=== PATIENT | male | born 1965 | race Two or more races ===

== ENCOUNTER → 2017-01-19 | Outpatient (CLI) | payer OTHER ==
--- NOTE | 2017-01-19 14:31 | MR ---
EXAMINATION: MR of the head without contrast. TECHNIQUE: Multiplanar and multisequence imaging of the head without intravenous contrast. Diffusion weighted sequences were performed. HISTORY: Contusion. FINDINGS: The cerebral hemispheres and deep nuclei are without hemorrhage, mass, edema or atrophy. Small very subtle T2 FLAIR hyperintensities noted within the periventricular and subcortical white letter. No e vidence for restricted diffusion. No extraaxial collections or hemorrhage. The ventricular system is of normal size and configuration without hydrocephalus. Brainstem and cerebellum are without hemorrhage, mass, edema, gliosis or at rophy. Carotid basilar artery flow voids are intact. The otomastoid airspaces are clear. No internal dat tory canal or cerebellopontine angle masses. There is opacification of the right sphenoid sinus. The craniocervical junction is unremarkable. IMPRESSION: 1. Small periventricular and subcortical white matter FLAIR signal intensities, nonspecific, may rep resent early small vessel ischemic changes. 2. Opacification of the right sphenoid sinus.
== END ==
LOC: MW.MRI 09:43
PROVIDERS: ATTEND General Practice
DX: S00.93XA Contusion of unspecified part of head, initial encounter (principal); J34.89 Other specified disorders of nose and nasal sinuses
CPT/HCPCS: 70551; 70551-26

== ENCOUNTER 2019-07-02 09:15 | Emergency (ER) | payer BC, OTHER ==
--- NOTE | 2019-07-02 09:24 | EDM.PDOC ---
ED HPI GENERAL MEDICAL PROBLEM - General Chief Complaint: General Stated Complaint: DIZZINESS Time Seen by Provider: 07/02/19 09:23 Source of Information: Reports: Patient History Limitations: Reports: No Limitations - History of Present Illness INITIAL COMMENTS - FREE TEXT/NARRATIVE: History of present illness: []Patient started having dizziness 5 days ago that is like a spinning sensation with nausea and reading in his ears and difficulty with balance. Denies any blurry vision, fevers, chills or neck pain he states that this has given him a headache. Review of systems: As per history of present illness and below otherwise all systems reviewed and negative. Past medical history: As per history of present illness and as reviewed below otherwise noncontributory. Surgical history: As per history of present illness and as reviewed below otherwise noncontributory. Social history: No reported history of drug or alcohol abuse. Family history: As per history of present illness and as reviewed below otherwise noncontributory. Physical exam: General: Well developed, well nourished in NAD HEENT: Atraumatic, normocephalic, pupils reactive, negative for conjunctival pallor or scleral icterus, mucous membranes moist, throat clear, neck supple, nontender, trachea midline. Lungs: Clear to auscultation, breath sounds equal bilaterally, chest nontender. Heart: S1S2, regular, negative for clicks, rubs, or JVD. Abdomen: NABS, Soft, nondistended, nontender. Negative for masses or hepatosplenomegaly. Negative for costovertebral tenderness. Pelvis: Stable nontender. Genitourinary: Deferred. Rectal: Deferred. Extremities: Atraumatic, negative for cords or calf pain. Neurovascular unremarkable. Neuro: Awake, alert, oriented. Cranial nerves II through XII unremarkable. Cerebellum unremarkable. Motor and sensory unremarkable throughout. Exam nonfocal. Skin:warm and dry Diagnostics: CBC, chemistry, EKG Therapeutics: IV hydration, Zofran, Toradol and meclizine ED Course: Tums resolved Impression: Benign positional vertigo Prescriptions: Meclizine and Zofran Plan: Take meds as directed, follow up with your primary care physician, return to ER if symptoms worsen or change. Definitive disposition and diagnosis as appropriate pending reevaluation and review of above. headache Pain Score (Numeric/FACES): 8 - Related Data Allergies Allergy/AdvReac Type Severity Reaction Status Date / Time No Known Allergies Allergy Verified 07/02/19 09:22 Home Meds: Home Meds Ondansetron [Zofran ODT] 4 mg PO Q6H PRN #30 tab.dis 07/02/19 [Rx] Past Medical History - Past Health History Medical/Surgical History: Denies Medical/Surgical History Social & Family History - Family History Family Medical History: Noncontributory - Tobacco Use Smoking Status *Q: Never Smoker Second Hand Smoke Exposure: No - Caffeine Use Caffeine Use: Reports: None - Recreational Drug Use Recreational Drug Use: No ED ROS GENERAL - Review of Systems Review Of Systems: See Below ED EXAM, GENERAL - Physical Exam Exam: See Below Course - Vital Signs Last Recorded V/S: Last Vital Signs Temp 97.2 F 07/02/19 10:38 Pulse 64 07/02/19 10:38 Resp 18 07/02/19 10:38 BP 156/106 H 07/02/19 10:38 Pulse Ox 97 07/02/19 10:38 - Orders/Labs/Meds Orders: Active Orders 24 hr Category Date Time Status EKG 12 Lead [EKG Documentation Completion] [RC] STAT Care 07/02/19 09:55 Active UA W/MICROSCOPIC [URIN] Stat Lab 07/02/19 09:49 Ordered Sodium Chloride 0.9% [Saline Flush] Med 07/02/19 09:49 Active 10 ml FLUSH ASDIRECTED PRN Sodium Chloride 0.9% [Saline Flush] Med 07/02/19 09:49 Active 2.5 ml FLUSH ASDIRECTED PRN Saline Lock Insert [OM.PC] Stat Oth 07/02/19 09:49 Ordered Medication Orders Sodium Chloride (Saline Flush) 10 ml FLUSH ASDIRECTED PRN PRN Reason: Keep Vein Open Last Admin: 07/02/19 10:02 Dose: 10 ml Sodium Chloride (Saline Flush) 2.5 ml FLUSH ASDIRECTED PRN PRN Reason: Keep Vein Open Last Admin: 07/02/19 10:02 Dose: 2.5 ml Labs: Laboratory Tests 07/02/19 07/02/19 Range/Units 09:30 09:30 WBC 6.85 (4.0-11.0) K/uL RBC 5.00 (4.50-5.90) M/uL Hgb 15.1 (13.0-17.0) g/dL Hct 45.2 (38.0-50.0) % MCV 90.4 (80.0-98.0) fL MCH 30.2 (27.0-32.0) pg MCHC 33.4 (31.0-37.0) g/dL RDW Std Deviation 43.1 (28.0-62.0) fl RDW Coeff of Gina 13 (11.0-15.0) % Plt Count 158 (150-400) K/uL MPV 12.30 H (7.40-12.00) fL Neut % (Auto) 63.3 (48.0-80.0) % Lymph % (Auto) 26.9 (16.0-40.0) % Cowley % (Auto) 7.7 (0.0-15.0) % Eos % (Auto) 2.0 (0.0-7.0) % Baso % (Auto) 0.1 (0.0-1.5) % Neut # (Auto) 4.3 (1.4-5.7) K/uL Lymph # (Auto) 1.8 (0.6-2.4) K/uL Cowley # (Auto) 0.5 (0.0-0.8) K/uL Eos # (Auto) 0.1 (0.0-0.7) K/uL Baso # (Auto) 0.0 (0.0-0.1) K/uL Nucleated RBC % 0.0 /100WBC Nucleated RBCs # 0 K/uL Sodium 140 (136-148) mmol/L Potassium 4.0 (3.5-5.1) mmol/L Chloride 105 (98-107) mmol/L Carbon Dioxide 26.4 (21.0-32.0) mmol/L BUN 10 (7.0-18.0) mg/dL Creatinine 1.0 (0.8-1.3) mg/dL Est Cr Clr Drug Dosing 84.45 mL/min Estimated GFR (MDRD) > 60.0 ml/min Glucose 140 H (74-106) mg/dL Calcium 8.5 (8.5-10.1) mg/dL Total Bilirubin 1.1 H (0.2-1.0) mg/dL AST 28 (15-37) IU/L ALT 17 (14-63) IU/L Alkaline Phosphatase 85 (46-116) U/L Total Protein 7.4 (6.4-8.2) g/dL Albumin 3.8 (3.4-5.0) g/dL Globulin 3.6 (2.6-4.0) g/dL Albumin/Globulin Ratio 1.1 (0.9-1.6) Meds: Medications Generic Name Dose Route Start Last Admin Trade Name Freq PRN Reason Stop Dose Admin Sodium Chloride 10 ml 07/02/19 09:49 07/02/19 10:02 Saline Flush FLUSH 10 ml ASDIRECTED PRN Administration Keep Vein Open Sodium Chloride 2.5 ml 07/02/19 09:49 07/02/19 10:02 Saline Flush FLUSH 2.5 ml ASDIRECTED PRN Administration Keep Vein Open Discontinued Medications Generic Name Dose Route Start Last Admin Trade Name Freq PRN Reason Stop Dose Admin Sodium Chloride 1,000 mls @ 999 mls/hr 07/02/19 09:49 07/02/19 09:59 Normal Saline IV 07/02/19 10:49 999 mls/hr .Bolus ONE Administration Ketorolac Tromethamine 30 mg 07/02/19 09:53 07/02/19 10:00 Toradol IVPUSH 07/02/19 09:54 30 mg ONETIME ONE Administration Meclizine HCl 25 mg 07/02/19 09:53 07/02/19 09:59 Antivert PO 07/02/19 09:54 25 mg ONETIME ONE Administration Ondansetron HCl 4 mg 07/02/19 09:53 07/02/19 09:59 Zofran IVPUSH 07/02/19 09:54 4 mg ONETIME ONE Administration Departure - Departure Time of Disposition: 11:15 Disposition: Home, Self-Care 01 Condition: Good Clinical Impression: Benign positional vertigo Qualifiers: Laterality: unspecified laterality Qualified Code(s): H81.10 - Benign paroxysmal vertigo, unspecified ear - Discharge Information *PRESCRIPTION DRUG MONITORING PROGRAM REVIEWED*: No *COPY OF PRESCRIPTION DRUG MONITORING REPORT IN PATIENT DINORAH: No Forms: ED Department Discharge Additional Instructions: The following information is given to patients seen in the emergency department who are being discharged to home. This information is to outline your options for follow-up care. We provide all patients seen in our emergency department with a follow-up referral. The need for follow-up, as well as the timing and circumstances, are variable depending upon the specifics of your emergency department visit. If you don't have a primary care physician on staff, we will provide you with a referral. We always advise you to contact your personal physician following an emergency department visit to inform them of the circumstance of the visit and for follow-up with them and/or the need for any referrals to a consulting specialist. The emergency department will also refer you to a specialist when appropriate. This referral assures that you have the opportunity for follow-up care with a specialist. All of these measure are taken in an effort to provide you with optimal care, which includes your follow-up. Under all circumstances we always encourage you to contact your private physician who remains a resource for coordinating your care. When calling for follow-up care, please make the office aware that this follow-up is from your recent emergency room visit. If for any reason you are refused follow-up, please contact the [facility] Emergency Department at and asked to speak to the emergency department charge nurse. Take meds as directed, follow up with your primary care physician, return to ER if symptoms worsen or change. [facility] [address] [place] [id number] - My Orders Last 24 Hours: My Active Orders 07/02/19 09:49 UA W/MICROSCOPIC [URIN] Stat Sodium Chloride 0.9% [Saline Flush] 10 ml FLUSH ASDIRECTED PRN Sodium Chloride 0.9% [Saline Flush] 2.5 ml FLUSH ASDIRECTED PRN Saline Lock Insert [OM.PC] Stat 07/02/19 09:55 EKG 12 Lead [EKG Documentation Completion] [RC] STAT - Assessment/Plan Last 24 Hours: My Active Orders 07/02/19 09:49 UA W/MICROSCOPIC [URIN] Stat Sodium Chloride 0.9% [Saline Flush] 10 ml FLUSH ASDIRECTED PRN Sodium Chloride 0.9% [Saline Flush] 2.5 ml FLUSH ASDIRECTED PRN Saline Lock Insert [OM.PC] Stat 07/02/19 09:55 EKG 12 Lead [EKG Documentation Completion] [RC] STAT
[2019-07-02] MEDS ORDERED: Sodium Chloride 0.9% 1,000 ML IV ONE (09:49)
[2019-07-02] MEDS ORDERED: Sodium Chloride 0.9% 10 ML Syringe FLUSH PRN (09:49)
[2019-07-02] MEDS ORDERED: Sodium Chloride 0.9% 2.5 ML Syringe FLUSH PRN (09:49)
[2019-07-02] MEDS ORDERED: Ondansetron 4 MG/2 ML SDV IVPUSH ONE (09:53)
[2019-07-02] MEDS ORDERED: Ketorolac 30 MG/ML SDV IVPUSH ONE (09:53)
[2019-07-02] MEDS ORDERED: Meclizine 25 MG Tab PO ONE (09:53)
[2019-07-02 10:34] LABS: BLOOD UREA NITROGEN,BUN 10 mg/dL (7.0-18.0); CARBON DIOXIDE,CO2 26.4 mmol/L (21.0-32.0); CHLORIDE,CL 105 mmol/L (98-107); GLUCOSE RANDOM 140 mg/dL (74-106); SODIUM,NA 140 mmol/L (136-148)
== END 2019-07-02 11:30 | disposition home or self-care (01) ==
LOC: MW.ED 09:15
DX: H81.10 Benign paroxysmal vertigo, unspecified ear (principal)
CPT/HCPCS: 36415; 80053; 85025; 93005; 96361; 96374; 96375; 99284; A9270; J1885; J2405; J7040; 99283

== ENCOUNTER 2019-07-03 10:19 | Emergency (ER) | payer BC ==
[2019-07-03] MEDS ORDERED: Sodium Chloride 0.9% 1,000 ML IV ONE (10:30)
[2019-07-03] MEDS ORDERED: Sodium Chloride 0.9% 10 ML Syringe FLUSH PRN (10:30)
[2019-07-03] MEDS ORDERED: Sodium Chloride 0.9% 2.5 ML Syringe FLUSH PRN (10:30)
--- NOTE | 2019-07-03 10:30 | EDM.PDOC ---
ED HPI GENERAL MEDICAL PROBLEM - General Chief Complaint: Cardiovascular Problem Stated Complaint: DIZZY Time Seen by Provider: 07/03/19 10:30 Source of Information: Reports: Patient History Limitations: Reports: No Limitations - History of Present Illness INITIAL COMMENTS - FREE TEXT/NARRATIVE: HISTORY AND PHYSICAL: History of present illness: Patient is a 53-year-old male presents to the ED with complaint of dizziness x 6 days. He was seen yesterday for this, was given Meclizine and zofran. He states he is more dizzy today. He states he initially had a headache but this has since resolved. He states it feels like the room is spinning and it worse when he changes positions. He states he is unsteady on his feet and almost falls over due to the dizziness. He reports some blurred vision. He denies nausea, vomiting, head injury, fevers, chills. He denies significant past medical history. Review of systems: As per history of present illness and below otherwise all systems reviewed and negative. Past medical history: As per history of present illness and as reviewed below otherwise noncontributory. Surgical history: As per history of present illness and as reviewed below otherwise noncontributory. Social history: No reported history of drug or alcohol abuse. Family history: As per history of present illness and as reviewed below otherwise noncontributory. Physical exam: General: Patient sitting comfortably in no acute distress and nontoxic appearing HEENT: Atraumatic, normocephalic, pupils reactive, negative for conjunctival pallor or scleral icterus, mucous membranes moist, throat clear, neck supple, nontender, trachea midline. No meningeal signs. Horizontal nystagmus noted. Lungs: Clear to auscultation, breath sounds equal bilaterally, chest nontender. Heart: S1S2, regular, negative for clicks, rubs, or overt murmur. Abdomen: Soft, nondistended, nontender. Negative for masses or hepatosplenomegaly. Negative for costovertebral tenderness. No rigidity, rebound , guarding. Pelvis: Stable nontender. Genitourinary: Deferred. Rectal: Deferred. Extremities: Atraumatic, negative for cords or calf pain. Neurovascular unremarkable. Neuro: Awake, alert, oriented. Cranial nerves II through XII unremarkable. Cerebellum unremarkable. Motor and sensory unremarkable throughout. Exam nonfocal. Notes: Diagnostics: CBC, CMP, Troponin, EKG, Head CT Therapeutics: 1L NS IV Prescriptions: Impression: Vertigo Plan: Take medications as prescribed Follow up with primary care provider Return to ED as needed as discussed Definitive disposition and diagnosis as appropriate pending reevaluation and review of above. - Related Data Allergies Allergy/AdvReac Type Severity Reaction Status Date / Time No Known Allergies Allergy Verified 07/02/19 09:22 Home Meds: Home Meds Ondansetron [Zofran ODT] 4 mg PO Q6H PRN #30 tab.dis 07/02/19 [Rx] Past Medical History - Past Health History Medical/Surgical History: Denies Medical/Surgical History - Infectious Disease History Infectious Disease History: Reports: None Social & Family History - Family History Family Medical History: Noncontributory - Tobacco Use Smoking Status *Q: Never Smoker Second Hand Smoke Exposure: No - Caffeine Use Caffeine Use: Reports: None - Recreational Drug Use Recreational Drug Use: No ED ROS GENERAL - Review of Systems Review Of Systems: ROS reveals no pertinent complaints other than HPI. ED EXAM, GENERAL - Physical Exam Exam: See Below (see dictation) Course - Vital Signs Last Recorded V/S: Last Vital Signs Temp 96.9 F 07/03/19 11:59 Pulse 60 07/03/19 11:59 Resp 16 07/03/19 11:59 BP 148/90 H 07/03/19 11:59 Pulse Ox 98 07/03/19 11:59 - Orders/Labs/Meds Orders: Active Orders 24 hr Category Date Time Status EKG Documentation Completion [RC] STAT Care 07/03/19 10:29 Active Sodium Chloride 0.9% [Saline Flush] Med 07/03/19 10:30 Active 10 ml FLUSH ASDIRECTED PRN Sodium Chloride 0.9% [Saline Flush] Med 07/03/19 10:30 Active 2.5 ml FLUSH ASDIRECTED PRN Saline Lock Insert [OM.PC] Stat Oth 07/03/19 10:29 Ordered Medication Orders Sodium Chloride (Saline Flush) 10 ml FLUSH ASDIRECTED PRN PRN Reason: Keep Vein Open Sodium Chloride (Saline Flush) 2.5 ml FLUSH ASDIRECTED PRN PRN Reason: Keep Vein Open Labs: Laboratory Tests 07/03/19 07/03/19 Range/Units 10:41 10:41 WBC 6.97 (4.0-11.0) K/uL RBC 4.96 (4.50-5.90) M/uL Hgb 15.2 (13.0-17.0) g/dL Hct 45.7 (38.0-50.0) % MCV 92.1 (80.0-98.0) fL MCH 30.6 (27.0-32.0) pg MCHC 33.3 (31.0-37.0) g/dL RDW Std Deviation 44.3 (28.0-62.0) fl RDW Coeff of Gina 13 (11.0-15.0) % Plt Count 168 (150-400) K/uL MPV 11.30 (7.40-12.00) fL Neut % (Auto) 64.2 (48.0-80.0) % Lymph % (Auto) 26.3 (16.0-40.0) % Pine % (Auto) 7.5 (0.0-15.0) % Eos % (Auto) 1.9 (0.0-7.0) % Baso % (Auto) 0.1 (0.0-1.5) % Neut # (Auto) 4.5 (1.4-5.7) K/uL Lymph # (Auto) 1.8 (0.6-2.4) K/uL Pine # (Auto) 0.5 (0.0-0.8) K/uL Eos # (Auto) 0.1 (0.0-0.7) K/uL Baso # (Auto) 0.0 (0.0-0.1) K/uL Nucleated RBC % 0.0 /100WBC Nucleated RBCs # 0 K/uL Sodium 142 (136-148) mmol/L Potassium 4.1 (3.5-5.1) mmol/L Chloride 105 (98-107) mmol/L Carbon Dioxide 24.7 (21.0-32.0) mmol/L BUN 13 (7.0-18.0) mg/dL Creatinine 1.0 (0.8-1.3) mg/dL Est Cr Clr Drug Dosing 76.21 mL/min Estimated GFR (MDRD) > 60.0 ml/min Glucose 116 H (74-106) mg/dL Calcium 8.3 L (8.5-10.1) mg/dL Total Bilirubin 0.6 (0.2-1.0) mg/dL AST 22 (15-37) IU/L ALT 21 (14-63) IU/L Alkaline Phosphatase 84 (46-116) U/L Troponin I < 0.050 (0.000-0.056) ng/mL Total Protein 6.7 (6.4-8.2) g/dL Albumin 3.8 (3.4-5.0) g/dL Globulin 2.9 (2.6-4.0) g/dL Albumin/Globulin Ratio 1.3 (0.9-1.6) Meds: Medications Generic Name Dose Route Start Last Admin Trade Name Freq PRN Reason Stop Dose Admin Sodium Chloride 10 ml 07/03/19 10:30 Saline Flush FLUSH ASDIRECTED PRN Keep Vein Open Sodium Chloride 2.5 ml 07/03/19 10:30 Saline Flush FLUSH ASDIRECTED PRN Keep Vein Open Discontinued Medications Generic Name Dose Route Start Last Admin Trade Name Freq PRN Reason Stop Dose Admin Sodium Chloride 1,000 mls @ 999 mls/hr 07/03/19 10:30 07/03/19 10:44 Normal Saline IV 07/03/19 11:30 999 mls/hr STAT ONE Administration Departure - Departure Time of Disposition: 12:13 Disposition: Home, Self-Care 01 Condition: Good Clinical Impression: Vertigo Referrals: PCP,None [Primary Care Provider] - Forms: ED Department Discharge Additional Instructions: The following information is given to patients seen in the emergency department who are being discharged to home. This information is to outline your options for follow-up care. We provide all patients seen in our emergency department with a follow-up referral. The need for follow-up, as well as the timing and circumstances, are variable depending upon the specifics of your emergency department visit. If you don't have a primary care physician on staff, we will provide you with a referral. We always advise you to contact your personal physician following an emergency department visit to inform them of the circumstance of the visit and for follow-up with them and/or the need for any referrals to a consulting specialist. The emergency department will also refer you to a specialist when appropriate. This referral assures that you have the opportunity for follow-up care with a specialist. All of these measure are taken in an effort to provide you with optimal care, which includes your follow-up. Under all circumstances we always encourage you to contact your private physician who remains a resource for coordinating your care. When calling for follow-up care, please make the office aware that this follow-up is from your recent emergency room visit. If for any reason you are refused follow-up, please contact the [facility] Emergency Department at and asked to speak to the emergency department charge nurse. [facility] [address] [address] [address] [facility] - Physical Therapy Professional Building [address] [place] [address], [address] [place] [address] Take medications as prescribed Follow up with primary care provider Return to ED as needed as discussed - My Orders Last 24 Hours: My Active Orders 07/03/19 10:29 EKG Documentation Completion [RC] STAT Saline Lock Insert [OM.PC] Stat 07/03/19 10:30 Sodium Chloride 0.9% [Saline Flush] 10 ml FLUSH ASDIRECTED PRN Sodium Chloride 0.9% [Saline Flush] 2.5 ml FLUSH ASDIRECTED PRN - Assessment/Plan Last 24 Hours: My Active Orders 07/03/19 10:29 EKG Documentation Completion [RC] STAT Saline Lock Insert [OM.PC] Stat 07/03/19 10:30 Sodium Chloride 0.9% [Saline Flush] 10 ml FLUSH ASDIRECTED PRN Sodium Chloride 0.9% [Saline Flush] 2.5 ml FLUSH ASDIRECTED PRN
[2019-07-03 11:36] LABS: BLOOD UREA NITROGEN,BUN 13 mg/dL (7.0-18.0); CARBON DIOXIDE,CO2 24.7 mmol/L (21.0-32.0); CHLORIDE,CL 105 mmol/L (98-107); GLUCOSE RANDOM 116 mg/dL (74-106); POTASSIUM,K 4.1 mmol/L (3.5-5.1); SODIUM,NA 142 mmol/L (136-148)
--- NOTE | 2019-07-03 11:39 | CT ---
INDICATION : Dizziness. TECHNIQUE : Noncontrast CT scan of brain. FINDINGS: No acute intra or extra-axial hemorrhage. The ventricles and sulci are normal size, shape and configuration. No visualized intracranial mass or additional abnormal attenuation. Bony calvarium is normal. IMPRESSION : No significant intracranial radiographic abnormality. Please note that all CT scans at this facility use dose modulation, iterative reconstruction, and/or weight-based dosing when appropriate to reduce radiation dose to as low as reasonably achievable. Dictated by Edmar Chung MD @ Jul 03 2019 11:29AM Signed by Dr. Edmar Chung @ Jul 03 2019 11:38AM
== END 2019-07-03 12:24 | disposition home or self-care (01) ==
LOC: MW.ED 10:19
DX: R42 Dizziness and giddiness (principal)
CPT/HCPCS: 36415; 70450; 80053; 84484; 85025; 93005; 96360; 99284; J7040

== ENCOUNTER 2019-07-26 12:36 | Emergency (ER) | payer BC ==
[2019-07-26] MEDS ORDERED: Sodium Chloride 0.9% 1,000 ML IV ONE (12:59)
[2019-07-26] MEDS ORDERED: Ondansetron 4 MG/2 ML SDV IVPUSH ONE (12:59)
[2019-07-26] MEDS ORDERED: Metoclopramide 10 MG/2 ML SDV IV ONE (13:00)
[2019-07-26] MEDS ORDERED: diphenhydrAMINE 50 MG/ML SDV IVPUSH ONE (13:00)
--- NOTE | 2019-07-26 13:04 | EDM.PDOC ---
ED HPI GENERAL MEDICAL PROBLEM - General Chief Complaint: Headache Stated Complaint: HEADACHE Time Seen by Provider: 07/26/19 12:38 Source of Information: Reports: Patient History Limitations: Reports: No Limitations - History of Present Illness INITIAL COMMENTS - FREE TEXT/NARRATIVE: HISTORY AND PHYSICAL: History of present illness: Patient is a 53-year-old male who presents to the ED today for concern of headache 5 days. Patient states he has taken Advil and Tylenol without relief of symptoms. Patient states he was seen here in the ED at the beginning of the month for dizziness and headache but his headache today is the worse than it had been prior. Patient states he is not feeling dizzy with the headache today. Patient denies any other symptoms or concerns. Patient denies fever, chills, chest pain, shortness of breath, or cough. Denies headache, neck stiff ness, change in vision, syncope, or near syncope. Denies nausea, vomiting, abdominal pain, diarrhea, constipation, or dysuria. Has not noted any blood in urine or stool. Patient has been eating and drinking appropriately. Review of systems: As per history of present illness and below otherwise all systems reviewed and negative. Past medical history: As per history of present illness and as reviewed below otherwise noncontributory. Surgical history: As per history of present illness and as reviewed below otherwise noncontributory. Social history: See social history for further information Family history: As per history of present illness and as reviewed below otherwise noncontributory. Physical exam: General: Patient is alert, oriented, and in no acute distress. Patient sitting comfortably on exam table. HEENT: Atraumatic, normocephalic, pupils equal and reactive bilaterally, negative for conjunctival pallor or scleral icterus, mucous membranes moist, TMs normal bilaterally, throat clear, neck supple, nontender, trachea midline. No drooling or trismus noted. No meningeal signs. No hot potato voice noted. Lungs: Clear to auscultation, breath sounds equal bilaterally, chest nontender. Heart: S1S2, regular rate and rhythm without overt murmur Abdomen: Soft, nondistended, nontender. Negative for masses or hepatosplenomegaly. Negative for costovertebral tenderness. Pelvis: Stable nontender. Genitourinary: Deferred. Rectal: Deferred. Skin: Intact, warm, dry. No lesions or rashes noted. Extremities: Atraumatic, negative for cords or calf pain. Neurovascular unremarkable. Neuro: Awake, alert, oriented. Cranial nerves II through XII unremarkable. Cerebellum unremarkable. Motor and sensory unremarkable throughout. Exam nonfocal. Notes: Dr. Alba verbally involved in patient care. Patient is not interested in any further investigation of symptoms and requesting to leave ED. Voices understanding and is agreeable to plan of care. Denies any further questions or concerns at this time. Diagnostics: CBC, CMP, UA, EKG, and CT with and without contrast Therapeutics: Toradol (patient declines all other therapeutics) Prescription: None Impression: Headache Plan: 1. Encourage small but frequent sips of fluid to prevent dehydration. 2. You can alternate ibuprofen and Tylenol as directed for pain and discomfort. 3. Follow up with your primary care provider and the neurologist as discussed. Return to the ED as needed and as discussed. Definitive disposition and diagnosis as appropriate pending reevaluation and review of above. headache Pain Score (Numeric/FACES): 7 - Related Data Allergies Allergy/AdvReac Type Severity Reaction Status Date / Time No Known Allergies Allergy Verified 07/26/19 12:49 Home Meds: Home Meds . [No Known Home Meds] 07/26/19 [History] Past Medical History - Past Health History Medical/Surgical History: Denies Medical/Surgical History - Infectious Disease History Infectious Disease History: Reports: None Social & Family History - Family History Family Medical History: Noncontributory - Tobacco Use Smoking Status *Q: Never Smoker - Caffeine Use Caffeine Use: Reports: None - Recreational Drug Use Recreational Drug Use: No ED ROS GENERAL - Review of Systems Review Of Systems: ROS reveals no pertinent complaints other than HPI. ED EXAM, GENERAL - Physical Exam Exam: See Below (See dictation) Course - Vital Signs Last Recorded V/S: Last Vital Signs Temp 96.1 F 07/26/19 12:47 Pulse 65 07/26/19 12:47 Resp 18 07/26/19 12:47 BP 157/95 H 07/26/19 12:47 Pulse Ox 96 07/26/19 12:47 - Orders/Labs/Meds Orders: Active Orders 24 hr Category Date Time Status EKG Documentation Completion [RC] STAT Care 07/26/19 13:07 Active UA RFX SONNY AND CULT IF INDIC [URIN] Stat Lab 07/26/19 13:07 Ordered Ketorolac [Toradol] Med 07/26/19 14:51 Once 30 mg IVPUSH ONETIME ONE Medication Orders Ketorolac Tromethamine (Toradol) 30 mg IVPUSH ONETIME ONE Stop: 07/26/19 14:52 Labs: Laboratory Tests 07/26/19 07/26/19 Range/Units 13:10 13:10 WBC 6.44 (4.0-11.0) K/uL RBC 4.93 (4.50-5.90) M/uL Hgb 14.8 (13.0-17.0) g/dL Hct 44.1 (38.0-50.0) % MCV 89.5 (80.0-98.0) fL MCH 30.0 (27.0-32.0) pg MCHC 33.6 (31.0-37.0) g/dL RDW Std Deviation 41.3 (28.0-62.0) fl RDW Coeff of Gina 13 (11.0-15.0) % Plt Count 180 (150-400) K/uL MPV 11.00 (7.40-12.00) fL Neut % (Auto) 59.2 (48.0-80.0) % Lymph % (Auto) 32.8 (16.0-40.0) % Winn % (Auto) 6.2 (0.0-15.0) % Eos % (Auto) 1.6 (0.0-7.0) % Baso % (Auto) 0.2 (0.0-1.5) % Neut # (Auto) 3.8 (1.4-5.7) K/uL Lymph # (Auto) 2.1 (0.6-2.4) K/uL Winn # (Auto) 0.4 (0.0-0.8) K/uL Eos # (Auto) 0.1 (0.0-0.7) K/uL Baso # (Auto) 0.0 (0.0-0.1) K/uL Nucleated RBC % 0.0 /100WBC Nucleated RBCs # 0 K/uL Sodium 141 (136-148) mmol/L Potassium 3.9 (3.5-5.1) mmol/L Chloride 106 (98-107) mmol/L Carbon Dioxide 25.4 (21.0-32.0) mmol/L BUN 12 (7.0-18.0) mg/dL Creatinine 0.9 (0.8-1.3) mg/dL Est Cr Clr Drug Dosing 93.83 mL/min Estimated GFR (MDRD) > 60.0 ml/min Glucose 100 (74-106) mg/dL Calcium 8.3 L (8.5-10.1) mg/dL Total Bilirubin 0.6 (0.2-1.0) mg/dL AST 21 (15-37) IU/L ALT 18 (14-63) IU/L Alkaline Phosphatase 78 (46-116) U/L Total Protein 7.0 (6.4-8.2) g/dL Albumin 3.8 (3.4-5.0) g/dL Globulin 3.2 (2.6-4.0) g/dL Albumin/Globulin Ratio 1.2 (0.9-1.6) Meds: Medications Generic Name Dose Route Start Last Admin Trade Name Freq PRN Reason Stop Dose Admin Ketorolac Tromethamine 30 mg 07/26/19 14:51 Toradol IVPUSH 07/26/19 14:52 ONETIME ONE Discontinued Medications Generic Name Dose Route Start Last Admin Trade Name Freq PRN Reason Stop Dose Admin Diphenhydramine HCl 50 mg 07/26/19 13:00 07/26/19 13:09 Benadryl IVPUSH 07/26/19 13:01 Not Given ONETIME ONE Sodium Chloride 1,000 mls @ 999 mls/hr 07/26/19 12:59 07/26/19 13:10 Normal Saline IV 07/26/19 13:59 Not Given STAT ONE Iopamidol 100 ml 07/26/19 14:14 07/26/19 14:14 Isovue Multipack-370 (76%) IVPUSH 07/26/19 14:15 100 ml ONETIME ONE Administration Ketorolac Tromethamine 30 mg 07/26/19 14:50 Toradol IVPUSH 07/26/19 14:51 ONETIME ONE Metoclopramide HCl 10 mg 07/26/19 13:00 07/26/19 13:10 Reglan IV 07/26/19 13:01 Not Given ONETIME ONE Ondansetron HCl 4 mg 07/26/19 12:59 07/26/19 13:10 Zofran IVPUSH 07/26/19 13:00 Not Given ONETIME ONE Departure - Departure Time of Disposition: 14:53 Disposition: Home, Self-Care 01 Clinical Impression: Headache Qualifiers: Headache type: unspecified Headache chronicity pattern: acute headache Intractability: not intractable Qualified Code(s): R51 - Headache - Discharge Information Referrals: PCP,Not In Area [Primary Care Provider] - Forms: ED Department Discharge Additional Instructions: The following information is given to patients seen in the emergency department who are being discharged to home. This information is to outline your options for follow-up care. We provide all patients seen in our emergency department with a follow-up referral. The need for follow-up, as well as the timing and circumstances, are variable depending upon the specifics of your emergency department visit. If you don't have a primary care physician on staff, we will provide you with a referral. We always advise you to contact your personal physician following an emergency department visit to inform them of the circumstance of the visit and for follow-up with them and/or the need for any referrals to a consulting specialist. The emergency department will also refer you to a specialist when appropriate. This referral assures that you have the opportunity for follow-up care with a specialist. All of these measure are taken in an effort to provide you with optimal care, which includes your follow-up. Under all circumstances we always encourage you to contact your private physician who remains a resource for coordinating your care. When calling for follow-up care, please make the office aware that this follow-up is from your recent emergency room visit. If for any reason you are refused follow-up, please contact the [facility] Emergency Department at and asked to speak to the emergency department charge nurse. [facility] Primary [facility] [address] [place] [address] [facility] [address] [place] [address] [facility] - Neurology Professional Building [address] [place] [address], [address] [place] [address] 1. Encourage small but frequent sips of fluid to prevent dehydration. 2. You can alternate ibuprofen and Tylenol as directed for pain and discomfort. 3. Follow up with your primary care provider and the neurologist as discussed. Return to the ED as needed and as discussed. - My Orders Last 24 Hours: My Active Orders 07/26/19 13:07 EKG Documentation Completion [RC] STAT UA RFX SONNY AND CULT IF INDIC [URIN] Stat 07/26/19 14:51 Ketorolac [Toradol] 30 mg IVPUSH ONETIME ONE - Assessment/Plan Last 24 Hours: My Active Orders 07/26/19 13:07 EKG Documentation Completion [RC] STAT UA RFX SONNY AND CULT IF INDIC [URIN] Stat 07/26/19 14:51 Ketorolac [Toradol] 30 mg IVPUSH ONETIME ONE
[2019-07-26 13:43] LABS: BLOOD UREA NITROGEN,BUN 12 mg/dL (7.0-18.0); CARBON DIOXIDE,CO2 25.4 mmol/L (21.0-32.0); CHLORIDE,CL 106 mmol/L (98-107); GLUCOSE RANDOM 100 mg/dL (74-106); POTASSIUM,K 3.9 mmol/L (3.5-5.1); SODIUM,NA 141 mmol/L (136-148)
[2019-07-26] MEDS ORDERED: Iopamidol 755 MG/ML 500 ML Multipack Bottle IVPUSH ONE (14:14)
--- NOTE | 2019-07-26 14:44 | CT ---
DATE: 07/26/2019 CLINICAL HISTORY: Patient with headache. TECHNIQUE: Standard helical CT image acquisition through the intracranial circulation following intravenous administration of contrast material with bolus tracking. Multiplanar reconstructed images were performed and interpreted. COMPARISON: CT same day FINDINGS: There is an intraluminal flap with associated dilatation to 6mm of the post-PICA segment of the intracranial right vertebral artery, consistent with an intradural dissection and associated pseudoaneurysm. The right internal carotid artery is normal. The right middle cerebral artery and its branches are normal. The right anterior cerebral artery and its branches are normal. The left internal carotid artery is normal. The left middle cerebral artery and its branches are normal. The left anterior cerebral artery and its branches are normal. The anterior communicating artery is well visualized and appears normal. The left vertebral artery and PICA are normal. The right vertebral artery is dominant. The basilar artery is patent and appears normal. The right posterior cerebral artery is normal. The left posterior cerebral artery is normal. The visualized venous structures are patent. 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 Further evaluation with a catheter angiogram for treatment planning is recommended. Findings were discussed with Dr. Alba at 6 PM. Bonnie Moncada MD Neurointerventional Radiologist [facility] Office: Pager: Please note that all CT scans at this facility use dose modulation, iterative reconstruction, and/or weight-based dosing when appropriate to reduce radiation dose to as low as reasonably achievable. Dictated by Bonnie Moncada MD @ Jul 26 2019 5:48PM Signed by Dr. Bonnie Moncada @ Jul 26 2019 6:03PM
[2019-07-26] MEDS ORDERED: Ketorolac 30 MG/ML SDV IVPUSH ONE ×2 (14:50→14:51)
== END 2019-07-26 15:15 | disposition home or self-care (01) ==
LOC: MW.ED 12:36
DX: R51 Headache (principal)
CPT/HCPCS: 70496; 80053; 85025; 93005; 96374; 99284; J1885; Q9967; 99283

== ENCOUNTER 2021-10-10 15:40 | Emergency (ER) | payer SELFPAY ==
[2021-10-10] MEDS ORDERED: Ketorolac 30 MG/ML SDV IVPUSH ONE (16:32)
[2021-10-10] MEDS ORDERED: diphenhydrAMINE 50 MG/ML SDV IVPUSH ONE (16:32)
[2021-10-10] MEDS ORDERED: Sodium Chloride 0.9% 10 ML Syringe FLUSH PRN (16:32)
[2021-10-10] MEDS ORDERED: Metoclopramide 10 MG/2 ML SDV IVPUSH ONE (16:32)
[2021-10-10] MEDS ORDERED: Sodium Chloride 0.9% 2.5 ML Syringe FLUSH PRN (16:32)
--- NOTE | 2021-10-10 16:34 | EDM.PDOC ---
ED HPI GENERAL MEDICAL PROBLEM - General Chief Complaint: Headache Stated Complaint: HEADACHE FOR 5 DAYS Time Seen by Provider: 10/10/21 16:10 - History of Present Illness INITIAL COMMENTS - FREE TEXT/NARRATIVE: History of present illness: [] Patient is a severe diffuse headache with insidious onset 5 days ago associated with nausea and vomiting. Patient has a history of migraines since he was a child. One time in his past medical history that I reviewed he had a work-up that showed a CT angiogram after a headache that showed a possible dissection of his vertebral artery. Subsequently he saw specialist and they told him there was nothing to worry about there. Patient has usually gotten treatment symptomatically for his migraines and improved and been able to return to work. Patient has no neurologic signs of stroke. Review of systems: As per history of present illness and below otherwise all systems reviewed and negative. Past medical history: As per history of present illness and as reviewed below otherwise noncontributory. Surgical history: As per history of present illness and as reviewed below otherwise noncontributory. Social history: No reported history of drug or alcohol abuse. Family history: As per history of present illness and as reviewed below otherwise noncontributory. Physical exam: Constitutional - well developed, well-nourished and in no acute distress HEENT - normocephalic, no evidence of trauma - external nose and mouth normal - no mass in neck and no JVD - mucosae moist EYES - full EOM, PERRL, no icterus - no evidence of inflammation, injection, or drainage Respiratory - no respiratory distress, equal bilateral expansion Musculoskeletal no gross deformity of long bones or joints - no tenderness, swelling or edema Neurologic -my brief neurologic exam is normal. Alert and oriented times four - CN II-XII grossly intact - motor sensory and coordination symmetrically normal Psychiatric - appropriate mood and affect with normal thought content Hematologic - No petechiae or purpura - mucosa appropriate color and sclera not pale - normal nail bed color and refill Integument - no rash or evidence of trauma - normal turgor Diagnostics: [] Therapeutics: [] Impression: [] Plan: [] Definitive disposition and diagnosis as appropriate pending reevaluation and review of above. Headache Pain Score (Numeric/FACES): 7 - Related Data Allergies Allergy/AdvReac Type Severity Reaction Status Date / Time No Known Allergies Allergy Verified 10/10/21 16:16 Home Meds: Home Meds . [No Known Home Meds] 07/26/19 [History] Past Medical History - Past Health History Medical/Surgical History: Denies Medical/Surgical History - Infectious Disease History Infectious Disease History: Reports: None Social & Family History - Family History Family Medical History: No Pertinent Family History - Tobacco Use Second Hand Smoke Exposure: No - Caffeine Use Caffeine Use: Reports: None - Recreational Drug Use Recreational Drug Use: No ED ROS GENERAL - Review of Systems Review Of Systems: Comprehensive ROS is negative, except as noted in HPI. ED EXAM, GENERAL - Physical Exam Exam: See Below Free Text/Narrative:: My physical exam is in the HPI Course - Vital Signs Last Recorded V/S: Last Vital Signs Temp 36.2 C 10/10/21 16:12 Pulse 65 10/10/21 16:12 Resp 20 10/10/21 16:12 BP 146/80 H 10/10/21 16:12 Pulse Ox 96 10/10/21 16:12 - Orders/Labs/Meds Orders: Active Orders 24 hr Category Date Time Status Sodium Chloride 0.9% [Saline Flush] Med 10/10/21 16:32 Active 10 ml FLUSH ASDIRECTED PRN Sodium Chloride 0.9% [Saline Flush] Med 10/10/21 16:32 Active 2.5 ml FLUSH ASDIRECTED PRN Saline Lock Insert [OM.PC] Stat Oth 10/10/21 16:32 Ordered Medication Orders Sodium Chloride (Sodium Chloride 0.9% 10 Ml Syringe) 10 ml FLUSH ASDIRECTED PRN PRN Reason: Keep Vein Open Last Admin: 10/10/21 17:03 Dose: 10 ml Documented by: TORIBIO Sodium Chloride (Sodium Chloride 0.9% 2.5 Ml Syringe) 2.5 ml FLUSH ASDIRECTED PRN PRN Reason: Keep Vein Open Last Admin: 10/10/21 17:03 Dose: 2.5 ml Documented by: TORIBIO Meds: Medications Generic Name Dose Route Start Last Admin Trade Name Freq PRN Reason Stop Dose Admin Sodium Chloride 10 ml 10/10/21 16:32 10/10/21 17:03 Sodium Chloride 0.9% 10 Ml Syringe FLUSH 10 ml ASDIRECTED PRN Administration Keep Vein Open Sodium Chloride 2.5 ml 10/10/21 16:32 10/10/21 17:03 Sodium Chloride 0.9% 2.5 Ml Syringe FLUSH 2.5 ml ASDIRECTED PRN Administration Keep Vein Open Discontinued Medications Generic Name Dose Route Start Last Admin Trade Name Elias PRN Reason Stop Dose Admin Diphenhydramine HCl 50 mg 10/10/21 16:32 10/10/21 17:04 Diphenhydramine 50 Mg/Ml Sdv IVPUSH 10/10/21 16:33 50 mg ONETIME ONE Administration Ketorolac Tromethamine 15 mg 10/10/21 16:32 10/10/21 17:04 Ketorolac 30 Mg/Ml Sdv IVPUSH 10/10/21 16:33 15 mg ONETIME ONE Administration Metoclopramide HCl 10 mg 10/10/21 16:32 10/10/21 17:03 Metoclopramide 10 Mg/2 Ml Sdv IVPUSH 10/10/21 16:33 10 mg ONETIME ONE Administration - Re-Assessments/Exams Free Text/Narrative Re-Assessment/Exam: 10/10/21 17:43 Patient is markedly improved. Plan to discharge with a diagnosis of migraine and let him follow-up with neurology. Departure - Departure Time of Disposition: 17:43 Disposition: Home, Self-Care 01 Condition: Good Clinical Impression: Migraine - Discharge Information Instructions: Migraine Headache, [id number] Forms: ED Department Discharge Additional Instructions: Return if worse- My neurology [facility] - Neurology Professional Building [address] [place] [address], [address] [place] [address] - [facility] - Primary Care [address] [place] [address] [id number] [address] [address] - The following information is given to patients seen in the emergency department who are being discharged to home. This information is to outline your options for follow-up care. We provide all patients seen in our emergency department with a follow-up referral. The need for follow-up, as well as the timing and circumstances, are variable depending upon the specifics of your emergency department visit. If you don't have a primary care physician on staff, we will provide you with a referral. We always advise you to contact your personal physician following an emergency department visit to inform them of the circumstance of the visit and for follow-up with them and/or the need for any referrals to a consulting specialist. The emergency department will also refer you to a specialist when appropriate. This referral assures that you have the opportunity for follow-up care with a specialist. All of these measure are taken in an effort to provide you with optimal care, which includes your follow-up. Under all circumstances we always encourage you to contact your private physician who remains a resource for coordinating your care. When calling for follow-up care, please make the office aware that this follow-up is from your recent emergency room visit. If for any reason you are refused follow-up, please contact the [facility] Emergency Department at and asked to speak to the emergency department charge nurse. Sepsis Event Note (ED) - Evaluation Sepsis Screening Result: No Definite Risk - Focused Exam Vital Signs: Vital Signs Temp Pulse Resp BP Pulse Ox 10/10/21 16:12 36.2 C 65 20 146/80 H 96 - My Orders Last 24 Hours: My Active Orders 10/10/21 16:32 Sodium Chloride 0.9% [Saline Flush] 10 ml FLUSH ASDIRECTED PRN Sodium Chloride 0.9% [Saline Flush] 2.5 ml FLUSH ASDIRECTED PRN Saline Lock Insert [OM.PC] Stat - Assessment/Plan Last 24 Hours: My Active Orders 10/10/21 16:32 Sodium Chloride 0.9% [Saline Flush] 10 ml FLUSH ASDIRECTED PRN Sodium Chloride 0.9% [Saline Flush] 2.5 ml FLUSH ASDIRECTED PRN Saline Lock Insert [OM.PC] Stat
== END 2021-10-10 17:48 | disposition home or self-care (01) ==
LOC: MW.ED 15:40
DX: G43.909 Migraine, unspecified, not intractable, without status migrainosus (principal)
CPT/HCPCS: 96374; 96375; 99283; J1200; J1885; J2765

== ENCOUNTER 2024-10-25 12:39 | Emergency (ER) | payer BC ==
[2024-10-25] MEDS: Ketorolac 30 MG/ML SDV IM STA (13:36)
== END 2024-10-25 14:17 | disposition home or self-care (01) ==
LOC: MW.ED 12:39
DX: R51.9 Headache, unspecified (principal); Z75.8 Other problems related to medical facilities and other health care
CPT/HCPCS: 87428; 87651; 96372; 99284; J1885